=== PATIENT | female | born 1995 | race Caucasian/White ===

== ENCOUNTER 2017-10-04 22:46 | Emergency (ER) | payer OTHER ==
[~2017-10-04] VITALS: Ht 157.5 cm; Wt 80.3 kg
[~2017-10-04 22:46] MED LIST: ALBU8.5H5 INH; BUDE10.2 INH; MOME13HF INH; MOME17SP INH; MONT10TA6 PO
[2017-10-04 23:27] LABS: HCG UR SG 1.026 (1.003-1.030); MICROSCOPIC NOT IND
[2017-10-04 23:29] LABS: CULTURE INDICATED? NO
[2017-10-04] MEDS ORDERED: ONDANSETRON ODT 4 MG PO PRN (23:30)
[2017-10-04 23:36] LABS: RAPID INFLUENZA A Negative (Negative); RAPID INFLUENZA B Negative (Negative)
[2017-10-05] MEDS ORDERED: SODIUM CHLORIDE 0.9% 1,000ML IVBOLUS ONE (01:00)
[2017-10-05] MEDS ORDERED: ONDANSETRON 2MG/ML, 2ML IVPush ONE (01:00)
[2017-10-05] MEDS ORDERED: SODIUM CHLORIDE FLUSH 10ML SYR IVF ONE (01:00)
[2017-10-05 01:20] LABS: MEAN CORPUSCULAR HEMOGLOBIN 28.6 pg (27.0-34.8); MEAN CORPUSCULAR HGB CONC 33.1 g/dL (32.4-35.8); MEAN CORPUSCULAR VOLUME 86.2 fL (80-100); MEAN PLATELET VOLUME 9.2 fL (7.4-10.4); PLATELET COUNT 363 x10^3/uL (130-400); RED BLOOD COUNT 4.77 x10^6/uL (3.82-5.3); RED CELL DISTRIBUTION WIDTH 13.4 % (9.6-15.2)
[2017-10-05] MEDS ORDERED: ONDANSETRON 2MG/ML, 2ML ONE (01:21)
[2017-10-05 01:25] LABS: ALANINE AMINOTRANSFERASE 42 U/L (12-78); ALBUMIN 3.7 g/dL (3.4-5.0); ANION GAP 11 mmol/L (5-15); CALCIUM 8.6 mg/dL (8.5-10.1); CHLORIDE 104 mmol/L (98-107); CREATININE 0.71 mg/dL (0.55-1.02)
[2017-10-05 01:27] LABS: ALKALINE PHOSPHATASE 90 U/L (45-117); BILIRUBIN,TOTAL 0.3 mg/dL (0.2-1.0)
[2017-10-05 01:38] LABS: BASOPHILS # (AUTO) 0.03 x10^3/uL (0-0.3); BASOPHILS % (AUTO) 0 % (0-1); EOSINOPHILS # (AUTO) 0.13 x10^3/uL (0-0.8); EOSINOPHILS % (AUTO) 1 % (1-7); LYMPHOCYTES # (AUTO) 1.85 x10^3/uL (1-6.1); LYMPHOCYTES % (AUTO) 21 % (22-44); MD SCAN; MONOCYTES # (AUTO) 1.45 x10^3/uL (0-1.4); MONOCYTES % (AUTO) 16 % (2-9); NEUTROPHILS % (AUTO) 61 % (42-75)
[2017-10-05 02:18] VITALS: BP 113/73
== END 2017-10-05 02:35 | disposition home or self-care (01) ==
LOC: ED 23:59
DX: B34.9 Viral infection, unspecified (principal); R11.2 Nausea with vomiting, unspecified; J45.909 Unspecified asthma, uncomplicated
CPT/HCPCS: 36415; 71045; 80053; 81003; 81025; 84703; 85025; 87400; 96361; 96374; 99285; J2405; J7030; Q0162

== ENCOUNTER 2018-08-06 21:03 | Emergency (ER) | payer SELFPAY ==
[~2018-08-06] VITALS: Ht 157.5 cm; Wt 83.2 kg
[2018-08-06] MEDS ORDERED: ALBUTEROL SULFATE 2.5 MG/3 ML ONE (21:34)
[2018-08-06] MEDS ORDERED: ALBUTEROL SULFATE 2.5 MG/3 ML NPPB ONE (22:00)
[2018-08-06 22:32] VITALS: BP 124/65
== END 2018-08-06 22:42 | disposition home or self-care (01) ==
LOC: ED 22:15
DX: J45.30 Mild persistent asthma, uncomplicated (principal)
CPT/HCPCS: 71045; 93005; 94640; 99283; J7613

== ENCOUNTER → 2019-08-26 | Outpatient (CLI) | payer OTHER | END | disposition home or self-care (01) | LOC: CFH 09:15 | PROVIDERS: ATTEND Nurse Practitioner | DX: J45.50 Severe persistent asthma, uncomplicated (principal) | CPT/HCPCS: 71250 ==

== ENCOUNTER 2019-10-29 22:20 | Emergency (ER) | payer OTHER ==
[~2019-10-29] VITALS: Ht 157.5 cm; Wt 96.4 kg
[2019-10-29] MEDS ORDERED: DIPH,PERTUSS(ACELL),TET VAC/PF 0.5 ML IM-VACC ONE ×2 (22:23→23:05)
--- NOTE | 2019-10-29 22:43 | NUR ---
Patient presents to ER c/o SOB. She states she had an asthma attack approx 1 hour ago. She has been using her home neb tx every four hours today and used two [employer]. None of them have helped. Patient is tripoding and speaking in [id number] sentences. Skin PWD. Respirations labored and slightly shallow.
[2019-10-29 22:59] VITALS: BP 110/83
[2019-10-29] MEDS ORDERED: SODIUM CHLORIDE 0.9% 1,000ML IVBOLUS ONE (23:00)
[2019-10-29 23:19] LABS: BASOPHILS # (AUTO) 0.02 x10^3/uL (0-0.1); BASOPHILS % (AUTO) 0 % (0-1); EOSINOPHILS # (AUTO) 0.01 x10^3/uL (0-0.4); EOSINOPHILS % (AUTO) 0 % (1-7); LYMPHOCYTES # (AUTO) 1.09 x10^3/uL (1-3.4); LYMPHOCYTES % (AUTO) 11 % (22-44); MD NO; MEAN CORPUSCULAR HEMOGLOBIN 27.7 pg (27.0-34.8); MEAN CORPUSCULAR HGB CONC 32.5 g/dL (32.4-35.8); MEAN CORPUSCULAR VOLUME 85.1 fL (80-100); MEAN PLATELET VOLUME 8.7 fL (7.4-10.4); MONOCYTES # (AUTO) 1.09 x10^3/uL (0.2-0.8); MONOCYTES % (AUTO) 11 % (2-9); NEUTROPHILS # (AUTO) 7.39 x10^3/uL (1.8-6.8); NEUTROPHILS % (AUTO) 77 % (42-75); PLATELET COUNT 354 x10^3/uL (130-400); RED BLOOD COUNT 4.83 x10^6/uL (3.82-5.3); RED CELL DISTRIBUTION WIDTH 14.2 % (9.6-15.2)
[2019-10-29 23:24] LABS: ALBUMIN 3.3 g/dL (3.4-5.0); ANION GAP 8 mmol/L (5-15); CALCIUM 8.3 mg/dL (8.5-10.1); CHLORIDE 108 mmol/L (98-107); CREATININE 0.77 mg/dL (0.55-1.02)
--- NOTE | 2019-10-30 00:38 | NUR ---
Discharge instructions given. All questions and concerns addressed. Patient ambulatory with a steady gait. Belongings with patient.
== END 2019-10-30 00:40 | disposition home or self-care (01) ==
LOC: ED 10-30 00:15
DX: J45.41 Moderate persistent asthma with (acute) exacerbation (principal)
CPT/HCPCS: 36415; 80048; 82040; 83735; 85025; 93005; 99284; J7030

== ENCOUNTER 2020-05-26 05:34 | Day surgery (SDC) | payer OTHER ==
[~2020-05-26] VITALS: Ht 157.5 cm; Wt 99.0 kg
[2020-05-26 06:16] VITALS: BP 128/83
[2020-05-26] MEDS ORDERED: ALBU8.5H8 INH (06:32)
[2020-05-26] MEDS ORDERED: PRED10TA PO (06:32)
[2020-05-26] MEDS ORDERED: PRED50TA PO (06:32)
[2020-05-26] MEDS ORDERED: EPIPEN (06:32)
[2020-05-26] MEDS ORDERED: FLUT1BLS INH (06:32)
[2020-05-26] MEDS ORDERED: IPRA3AMP30 INH (06:32)
[2020-05-26] MEDS ORDERED: TIOT18CA INH (06:33)
[2020-05-26] MEDS ORDERED: ALBUTEROL SULFATE 2.5 MG/3 ML ONE ×2 (06:45→08:28)
[2020-05-26] MEDS ORDERED: SODIUM CHLORIDE 0.9% 1,000 ML IV SCH (07:00)
[2020-05-26] MEDS ORDERED: FENTANYL PF 100 MCG/2ML ONE ×2 (07:03)
[2020-05-26] MEDS ORDERED: GLYCOPYRROLATE 0.4 MG/2 ML, 2ML ONE ×3 (07:04→07:05)
[2020-05-26] MEDS ORDERED: MIDAZOLAM 1 MG/ML, 5ML ONE (07:04)
[2020-05-26] MEDS ORDERED: DIPHENHYDRAMINE 50 MG/ML, 1ML ONE (07:05)
[2020-05-26] MEDS ORDERED: LIDOCAINE 4% TOPICAL SOLUTION 50 ML ONE (12:00)
[2020-05-26] MEDS ORDERED: LIDOCAINE 2%, 20ML ONE (12:00)
[2020-05-26] MEDS ORDERED: LIDOCAINE GEL 2%, 5ML ONE (12:00)
== END 2020-05-26 09:58 | disposition home or self-care (01) ==
LOC: OR 05:34 → OUT 09:58
PROVIDERS: ATTEND Internal Medicine
DX: J45.50 Severe persistent asthma, uncomplicated (principal); Z20.828 Contact with and (suspected) exposure to other viral communicable diseases; J30.9 Allergic rhinitis, unspecified; E88.01 Alpha-1-antitrypsin deficiency; Z79.899 Other long term (current) drug therapy; Z88.0 Allergy status to penicillin; Z91.048 Other nonmedicinal substance allergy status; Z90.49 Acquired absence of other specified parts of digestive tract; Z98.890 Other specified postprocedural states
CPT/HCPCS: 31660; 87635; 94060; 94640; 99152; 99153; C1886; J1200; J2250; J3010; J7030

== ENCOUNTER 2020-06-30 07:24 | Day surgery (SDC) | payer OTHER ==
[~2020-06-30] VITALS: Ht 157.5 cm; Wt 98.9 kg
[~2020-06-30 07:24] MED LIST changes: +ALBU8.5H8 INH; +EPIPEN; +FLUT1BLS INH; +IPRA3AMP30 INH; +PRED10TA PO; +PRED50TA PO; +TIOT18CA INH
[2020-06-30 08:17] VITALS: BP 131/84
[2020-06-30] MEDS ORDERED: ALBUTEROL SULFATE 2.5 MG/3 ML ONE (08:26)
[2020-06-30] MEDS ORDERED: SODIUM CHLORIDE 0.9% 1,000 ML IV SCH (08:30)
[2020-06-30] MEDS ORDERED: ALBUTEROL SULFATE 2.5 MG/3 ML NPPB PRN (08:30)
[2020-06-30] MEDS ORDERED: DIPHENHYDRAMINE 50 MG/ML, 1ML ONE (08:51)
[2020-06-30] MEDS ORDERED: GLYCOPYRROLATE 0.4 MG/2 ML, 2ML ONE (08:51)
[2020-06-30] MEDS ORDERED: MIDAZOLAM 1 MG/ML, 5ML ONE ×2 (08:52)
[2020-06-30] MEDS ORDERED: FENTANYL PF 100 MCG/2ML ONE (08:52)
[2020-06-30] MEDS ORDERED: ALBUTEROL HFA 90 MCG/SPRAY INH ONE (09:00)
[2020-06-30] MEDS ORDERED: LIDOCAINE 4% TOPICAL SOLUTION 50 ML ONE (12:11)
[2020-06-30] MEDS ORDERED: LIDOCAINE GEL 2%, 5ML ONE (12:11)
[2020-06-30] MEDS ORDERED: LIDOCAINE 2%, 20ML ONE (12:11)
== END 2020-06-30 13:35 | disposition home or self-care (01) ==
LOC: OUT 07:24
PROVIDERS: ATTEND Internal Medicine
DX: J45.50 Severe persistent asthma, uncomplicated (principal); E88.01 Alpha-1-antitrypsin deficiency; Z20.828 Contact with and (suspected) exposure to other viral communicable diseases; Z88.0 Allergy status to penicillin; Z91.018 Allergy to other foods; Z91.010 Allergy to peanuts; Z72.89 Other problems related to lifestyle; Z79.899 Other long term (current) drug therapy; Z98.890 Other specified postprocedural states
CPT/HCPCS: 31660; 87635; 94640; 99152; 99153; C1886; J1200; J2250; J3010; J7030; J7613

== ENCOUNTER → 2020-07-28 | Day surgery (SDC) | payer OTHER ==
[~2020-07-28] VITALS: Ht 157.5 cm; Wt 99.4 kg
[~2020-07-28] MED LIST changes: +ALBUTEROL SULFATE 2.5 MG/3 ML NPPB SCH; +ALBUTEROL SULFATE 2.5 MG/3 ML ONE; +CHLORHEXIDINE 15 ML UDC MM ONE; +DIPHENHYDRAMINE 50 MG/ML, 1ML ONE; +FENTANYL PF 100 MCG/2ML ONE; +GLYCOPYRROLATE 0.4 MG/2 ML, 2ML ONE; +LACTATED RINGERS 1,000 ML IV SCH; +MIDAZOLAM 1 MG/ML, 5ML ONE
[2020-07-28 11:17] VITALS: BP 127/85
[2020-07-28 11:43] LABS: HCG UR SG 1.027 (1.003-1.030)
== END | disposition home or self-care (01) ==
LOC: OUT 10:54
PROVIDERS: ATTEND Internal Medicine
DX: J45.50 Severe persistent asthma, uncomplicated (principal); E66.9 Obesity, unspecified; Z79.899 Other long term (current) drug therapy; Z88.0 Allergy status to penicillin; Z91.018 Allergy to other foods; Z91.010 Allergy to peanuts; Z72.89 Other problems related to lifestyle; Z20.828 Contact with and (suspected) exposure to other viral communicable diseases; Z68.41 Body mass index [BMI] 40.0-44.9, adult
CPT/HCPCS: 31661; 81025; 87635; 94640; 99152; 99153; C1886; J1200; J2250; J3010; J7120; J7613